=== PATIENT | female | born 1990 | race American Indian/Alaskan Native ===

== ENCOUNTER 2018-03-28 08:49 | Emergency (ER) | payer SELFPAY ==
[2018-03-28 08:56] VITALS: BP 144/84
[2018-03-28] MEDS ORDERED: DECADRON IM ONE (09:25)
--- NOTE | 2018-03-28 09:29 | Emergency Department Report ---
Minor Respiratory - HPI Chief Complaint: Sore Throat Stated Complaint: THROAT SWELLING/PAIN Time Seen by Provider: 03/28/18 09:05 Duration: 3 Days Pain Location: Throat Severity: mild Minor Respiratory: Yes Sore Throat, Yes Able to Tolerate Fluids, No Rhinorrhea, No Ear Pain, No Cough, No Sick Contacts, No Hemoptysis, No Chest Pain, No Shortness of Breath, No Fever Other History: Patient is a 27-year-old -[place] female who presents to the ER today with sore throat. She has had it for 3 days. No fever. No cough. Denies being around some illness. ED Review of Systems ROS: Stated complaint: THROAT SWELLING/PAIN Other details as noted in HPI Comment: All other systems reviewed and negative Constitutional: denies: chills, fever Eyes: denies: eye pain ENT: throat pain Respiratory: denies: orthopnea Cardiovascular: denies: palpitations Endocrine: denies: flushing ED Past Medical Hx - Past Medical History Previous Medical History?: Yes Hx Asthma: Yes - Surgical History Past Surgical History?: No - Family History Family history: no significant - Social History Smoking Status: Current Every Day Smoker Substance Use Type: None - Medications Home Medications: Home Medications Medication Instructions Recorded Confirmed Last Taken Type Clindamycin [Clindamycin CAP] 300 mg PO Q6H #40 cap 03/28/18 Unknown Rx Minor Respiratory Exam - Exam General: Vital signs noted. No distress. Alert and acting appropriately. HEENT: Yes Pharyngeal Erythema, Yes Pharyngeal Exudates, Yes Moist Mucous Membranes, No Rhinorrhea, No Conjuctival Injection, No Frontal Tenderness, No Maxillary Tenderness Ear: Neither TM Bulge, Neither TM Erythema, Neither EAC Pain, Neither EAC Discharge Neck: Yes Adenopathy, Yes Supple Lungs: Yes Good Air Exchange, No Wheezes, No Ronchi, No Stridor, No Cough, No Labored Respirations, No Retractions, No Use of Accessory Muscles, No Other Abnormal Lung Sounds Heart: Yes Regular, No Murmur (hr 90 on exam) Abdomen: Yes Normal Bowel Sounds, No Tenderness, No Peritoneal Signs Skin: No Rash, No Edema Neurologic: Alert and oriented, no deficits. Musculoskeletal: Unremarkable. ED Course Vital Signs 03/28/18 08:54 Temperature 99.1 F Pulse Rate 102 H Respiratory 16 Rate Blood Pressure 144/84 O2 Sat by Pulse 99 Oximetry ED Medical Decision Making - Medical Decision Making exudative pharyngitis abc intact no abscess noted no fever taking po medicated and dc home with pcp follow up - Differential Diagnosis ro abscess Critical care attestation.: If time is entered above; I have spent that time in minutes in the direct care of this critically ill patient, excluding procedure time. ED Disposition Clinical Impression: Exudative pharyngitis Disposition: DC-01 TO HOME OR SELFCARE Is pt being admited?: No Does the pt Need Aspirin: No Condition: Stable Instructions: Pharyngitis (ED) Additional Instructions: follow up with pcp referral below motrin or tylenol for pain or fever med as ordered until gone hydrate well with water Referrals: PRIMARY MD NELDA [Primary Care Provider] - 3-5 Days MARTINA BABB MD [Staff Physician] - 3-5 Days Time of Disposition: 09:28
[2018-03-28] MEDS ORDERED: CLEOCIN PO ONE (10:00)
== END 2018-03-28 10:00 | disposition home or self-care (01) ==
LOC: ED 08:49
DX: J02.9 Acute pharyngitis, unspecified (principal); J45.909 Unspecified asthma, uncomplicated; F17.200 Nicotine dependence, unspecified, uncomplicated; Z88.0 Allergy status to penicillin
CPT/HCPCS: 96372; 99282; J1100

== ENCOUNTER 2018-06-07 12:13 | Emergency (ER) | payer SELFPAY ==
--- NOTE | 2018-06-07 12:20 | Emergency Department Report ---
Blank Doc - Documentation Documentation: This is a 27-year-old female that presents with sore throat. This initial assessment/diagnostic orders/clinical plan/treatment(s) is/are subject to change based on patient's health status, clinical progression and re- assessment by fellow clinical providers in the ED. Further treatment and workup at subsequent clinical providers discretion. Patient/guardians urged not to elope from the ED as their condition may be serious if not clinically assessed and managed. Initial orders include: 1- Patient sent to [facility] for further evaluation and treatment 2- strep throat
--- NOTE | 2018-06-07 14:12 | Emergency Department Report ---
ED ENT HPI - General Chief complaint: Sore Throat Stated complaint: CANT SWOLLOW Time Seen by Provider: 06/07/18 12:19 Source: patient Mode of arrival: Ambulatory Limitations: No Limitations - History of Present Illness Initial comments: 27-year-old female who presents to ED complaining of throat pain and pain with swallowing. Patient states she was seen here couple days ago and is currently taking clindamycin for throat infection. Patient states that is not working and she still feels her throat pain. She reports pain with swallowing. MD complaint: sore throat -: Gradual Location: throat Severity: moderate Severity scale (0 -10): 7 Quality: aching, constant Worsens with: swallowing, eating Associated Symptoms: fever, pain with swallowing - Related Data Previous Rx's Medication Instructions Recorded Last Taken Type Clindamycin [Clindamycin CAP] 300 mg PO Q6H #40 cap 03/28/18 Unknown Rx Chlorhexidine Mouthwash [Peridex] 15 ml MM BID #1 bottle 06/05/18 Unknown Rx Clindamycin [Clindamycin CAP] 300 mg PO Q8H #30 cap 06/05/18 Unknown Rx Tramadol HCl [Ultram] 50 mg PO Q6H PRN #12 tablet 06/05/18 Unknown Rx Acetamin/Codeine 120-12Mg/5 ml 5 ml PO TID #60 oral.liqd 06/07/18 Unknown Rx [Tylenol/Codeine 120-12 mg/5 ml] Allergies Allergy/AdvReac Type Severity Reaction Status Date / Time Penicillins Allergy Hives Verified 02/09/18 01:00 ED Dental HPI - General Chief complaint: Sore Throat Stated complaint: CANT SWOLLOW Time Seen by Provider: 06/07/18 12:19 Source: patient Mode of arrival: Ambulatory Limitations: No Limitations - Related Data Previous Rx's Medication Instructions Recorded Last Taken Type Clindamycin [Clindamycin CAP] 300 mg PO Q6H #40 cap 03/28/18 Unknown Rx Chlorhexidine Mouthwash [Peridex] 15 ml MM BID #1 bottle 06/05/18 Unknown Rx Clindamycin [Clindamycin CAP] 300 mg PO Q8H #30 cap 06/05/18 Unknown Rx Tramadol HCl [Ultram] 50 mg PO Q6H PRN #12 tablet 06/05/18 Unknown Rx Acetamin/Codeine 120-12Mg/5 ml 5 ml PO TID #60 oral.liqd 06/07/18 Unknown Rx [Tylenol/Codeine 120-12 mg/5 ml] Allergies Allergy/AdvReac Type Severity Reaction Status Date / Time Penicillins Allergy Hives Verified 02/09/18 01:00 ED Review of Systems ROS: Stated complaint: CANT SWJOCY Other details as noted in HPI Comment: All other systems reviewed and negative ED Past Medical Hx - Past Medical History Previous Medical History?: No Hx Asthma: Yes - Surgical History Past Surgical History?: No - Social History Smoking Status: Current Every Day Smoker Substance Use Type: None - Medications Home Medications: Home Medications Medication Instructions Recorded Confirmed Last Taken Type Clindamycin [Clindamycin CAP] 300 mg PO Q6H #40 cap 03/28/18 Unknown Rx Chlorhexidine Mouthwash [Peridex] 15 ml MM BID #1 bottle 06/05/18 Unknown Rx Clindamycin [Clindamycin CAP] 300 mg PO Q8H #30 cap 06/05/18 Unknown Rx Tramadol HCl [Ultram] 50 mg PO Q6H PRN #12 tablet 06/05/18 Unknown Rx Acetamin/Codeine 120-12Mg/5 ml 5 ml PO TID #60 oral.liqd 06/07/18 Unknown Rx [Tylenol/Codeine 120-12 mg/5 ml] ED Physical Exam - General Limitations: No Limitations General appearance: alert, in no apparent distress - Head Head exam: Present: atraumatic, normocephalic - Eye Eye exam: Present: normal appearance, PERRL - ENT ENT exam: Present: mucous membranes moist - Expanded ENT Exam Expanded Mouth exam: Present: normal external inspection. Absent: drooling, trismus Throat exam: Positive: tonsillar erythema, tonsillar exudate, R peritonsillar mass, L peritonsillar mass, other (no airway compromise, uvula is midline and nonedematous) - Neck Neck exam: Present: normal inspection, full ROM, lymphadenopathy - Respiratory Respiratory exam: Present: normal lung sounds bilaterally. Absent: respiratory distress, wheezes, rales - Cardiovascular Cardiovascular Exam: Present: regular rate, normal rhythm. Absent: systolic murmur, diastolic murmur, rubs, gallop - GI/Abdominal GI/Abdominal exam: Present: soft, normal bowel sounds. Absent: distended, tenderness - Extremities Exam Extremities exam: Present: normal inspection - Back Exam Back exam: Present: normal inspection - Neurological Exam Neurological exam: Present: alert, oriented X3 - Psychiatric Psychiatric exam: Present: normal affect, normal mood - Skin Skin exam: Present: warm, dry, intact, normal color. Absent: rash ED Course Vital Signs 06/07/18 06/07/18 12:19 14:52 Temperature 98.4 F 100.1 F H Pulse Rate 107 H 102 H Respiratory 18 20 Rate Blood Pressure 175/79 Blood Pressure 127/83 [Right] O2 Sat by Pulse 98 100 Oximetry ED Medical Decision Making - Medical Decision Making 27-year-old male presents with acute bacterial pharyngitis. ED course: Rapid strep tests ordered rapid strep test negative Patient received 1 dose of Tylenol,, 10 mg of Decadron, 600 mg of clindamycin IM Fever responsive to one dose of Tylenol. Vital signs stable patient is in no acute or respiratory distress. Discussed findings with patient that although strep is negative she most likely has some other form of bacterial tonsillitis. Discussed treatment in ED with patient Discussed the patient that bacterial pharyngitis is contagious and to limit sharing spoons and such. Application to be sent home on Motrin and a couple of days worth of prednisone. Discussed with patient follow-up with primary care physician. Patient verbally states he understands and will comply to follow-up. Critical care attestation.: If time is entered above; I have spent that time in minutes in the direct care of this critically ill patient, excluding procedure time. ED Disposition Clinical Impression: Acute tonsillitis, Pharyngitis Disposition: TO HOME OR SELFCARE Is pt being admited?: No Does the pt Need Aspirin: No Condition: Stable Instructions: Tonsillitis (ED), Pharyngitis (ED) Additional Instructions: Make sure to follow up with the primary care physician as discussed. Continue to take your medications as you've been prescribed. If you have any worsening symptoms or develop new symptoms please return to ED immediately. Prescriptions: Acetamin/Codeine 120-12Mg/5 ml [Tylenol/Codeine 120-12 mg/5 ml] 5 ml PO TID #60 oral.liqd Referrals: POLLY IZAGUIRRE MD [Primary Care Provider] - 3-5 Days [facility] [Provider Group] - 3-5 Days [facility] [Provider Group] - 3-5 Days Forms: Accompanied Note, Work/School Release Form(ED) Time of Disposition: 15:47
[2018-06-07] MEDS ORDERED: CLEOCIN IM ONE (14:42)
[2018-06-07] MEDS ORDERED: DECADRON IM ONE (14:42)
[2018-06-07 14:54] VITALS: BP 127/83
[2018-06-07] MEDS ORDERED: TYLENOL/CODEINE PO ONE (14:55)
[2018-06-07] MEDS ORDERED: TYLENOL/CODEINE ONE (14:59)
== END 2018-06-07 15:58 | disposition home or self-care (01) ==
LOC: ED 12:13
DX: J03.90 Acute tonsillitis, unspecified (principal); J02.9 Acute pharyngitis, unspecified; J45.909 Unspecified asthma, uncomplicated; F17.200 Nicotine dependence, unspecified, uncomplicated; Z88.0 Allergy status to penicillin
CPT/HCPCS: 87116; 87430; 96372; 99283; J1100